=== PATIENT | female | born 1955 | race Caucasian/White ===

== ENCOUNTER 2024-06-22 07:07 | Day surgery (SDC) | payer MEDICARE, BC ==
[~2024-06-22] VITALS: Ht 165.1 cm; Wt 51.0 kg
[2024-06-22 07:29] VITALS: BP 115/70; PULSE 79; RESP 16; TEMP 98.4; O2SAT 99
[2024-06-22] MEDS ORDERED: IBUP-1594 PO (07:42)
[2024-06-22] MEDS ORDERED: HYDR-3973 PO (07:42)
[2024-06-22 07:50] VITALS: RESP 16; O2SAT 99
== END 2024-06-22 10:45 | disposition home or self-care (01) ==
LOC: SSTAY O 07:07
PROVIDERS: ATTEND Student in an Organized Health Care Education/Training Program
DX: C02.9 Malignant neoplasm of tongue, unspecified (principal); Z53.8 Procedure and treatment not carried out for other reasons; Z98.890 Other specified postprocedural states; Z79.899 Other long term (current) drug therapy
CPT/HCPCS: J7030